=== PATIENT | male | born 1990 | race African-American/Black ===

== ENCOUNTER 2020-05-30 09:41 | Emergency (ER) | payer SELFPAY, OTHER ==
[2020-05-30] MEDS ORDERED: Ketorolac Tromethamine 30 MG/ML VIAL ONE (10:46)
[2020-05-30] MEDS ORDERED: Bupivacaine 0.5% 10 ML VIAL ONE (10:46)
== END 2020-05-30 11:34 | disposition home or self-care (01) ==
LOC: ERS 09:41
DX: K03.81 Cracked tooth (principal); K02.9 Dental caries, unspecified; F17.210 Nicotine dependence, cigarettes, uncomplicated
CPT/HCPCS: 64400; 96372; J1885; J3490

== ENCOUNTER 2021-08-17 10:43 | Emergency (ER) | payer BC ==
[2021-08-17] MEDS ORDERED: HYDROcodone/Acetaminophen 5/325 mg Tablet ONE (11:52)
== END 2021-08-17 12:15 | disposition home or self-care (01) ==
LOC: ERS 10:43
DX: S90.31XA Contusion of right foot, initial encounter (principal); F17.210 Nicotine dependence, cigarettes, uncomplicated; X58.XXXA Exposure to other specified factors, initial encounter

== ENCOUNTER 2022-11-22 01:34 | Emergency (ER) | payer BC, SELFPAY ==
[2022-11-22] MEDS ORDERED: Lidocaine 1% w/Epinephrine 1:100K 20 ML VIAL ONE (03:14)
[2022-11-22] MEDS ORDERED: Amoxicillin/Potassium Clav 875 MG TAB ONE (03:51)
[2022-11-22] MEDS ORDERED: Ketorolac Tromethamine 30 MG/ML VIAL ONE (03:51)
== END 2022-11-22 04:19 | disposition home or self-care (01) ==
LOC: ERS 01:34
DX: K04.7 Periapical abscess without sinus (principal); F17.210 Nicotine dependence, cigarettes, uncomplicated
CPT/HCPCS: 41800; 96372; J1885